=== PATIENT | female | born 1965 | race Caucasian/White ===

== ENCOUNTER 2018-11-29 20:20 | Emergency (ER) | payer BC ==
[~2018-11-29] VITALS: Ht 154.9 cm; Wt 49.4 kg
[2018-11-29 21:46] VITALS: BP 128/79
== END 2018-11-29 21:46 | disposition home or self-care (01) ==
LOC: ED 20:20
DX: F41.9 Anxiety disorder, unspecified (principal); Z98.890 Other specified postprocedural states
CPT/HCPCS: J1885; Q0162